=== PATIENT | female | born 1965 | race Caucasian/White ===

== ENCOUNTER 2020-05-06 13:40 | Emergency (ER) | payer MEDICARE, MEDICAID ==
[~2020-05-06] VITALS: Ht 160 cm; Wt 59.1 kg
[~2020-05-06 13:40] MED LIST: ALEN70TA60 PO; BISA-155 PO; ERGO400T7 PO; FURO-150 PO; GABA-532 PO; LAMO100T2 PO; LURA40TA3 PO; OMEP20TA5 PO; OXYC-138 PO; PROC5TAB10 PO; TRAZ-256 PO; VAL5T PO
[2020-05-06 14:24] LABS: BASOPHILS % (AUTO) 0.7 % (0-1); EOSINOPHILS % (AUTO) 0.8 % (0-6); HEMATOCRIT 41.9 % (35.0-45.0); LYMPHOCYTES # (AUTO) 1.3 X10'3 (1.1-4.8); LYMPHOCYTES % (AUTO) 20.5 % (21-51); MEAN CORPUSCULAR HEMOGLOBIN 32.4 PG (27.0-31.0); MEAN CORPUSCULAR HGB CONC 33.3 g/dL (33.0-36.5); MEAN CORPUSCULAR VOLUME 97.1 FL (78-98); MEAN PLATELET VOLUME 8.1 FL (7.4-10.4); MONOCYTES # (AUTO) 0.3 X10'3 (0-0.9); MONOCYTES % (AUTO) 4.1 % (2-12); NEUTROPHILS # (AUTO) 4.6 X10'3 (1.8-7.7); NEUTROPHILS % (AUTO) 73.9 % (42-75); PLATELET COUNT 171 X10'3 (140-440); RED BLOOD COUNT 4.32 X10'6 (4.20-5.60); RED CELL DISTRIBUTION WIDTH 15.7 % (11.5-14.5); WHITE BLOOD COUNT 6.2 X10'3 (4.5-11.0)
[2020-05-06 14:30] LABS: CLARITY,URINE CLEAR (Clear); COLOR,URINE STRAW (Yellow); GLUCOSE, URINE NEGATIVE (Neg); KETONES,URINE NEGATIVE (Neg); LEUKOCYTE ESTERASE ,URINE NEGATIVE (Neg); NITRITES, URINE NEGATIVE (Neg); OCCULT BLOOD,URINE NEGATIVE (Neg); PROTEIN,URINE NEGATIVE (Neg); UROBILINOGEN,URINE 0.2 E.U/dL (0.2-1.0)
[2020-05-06 14:40] LABS: UA COLLECTION TYPE CLN CATCH MIDSTREAM
[2020-05-06 14:42] LABS: ALANINE AMINOTRANSFERASE 21 U/L (12-78); ALBUMIN 3.7 G/DL (3.4-5.0); ALBUMIN/GLOBULIN RATIO 1.2 (1.1-1.5); ALKALINE PHOSPHATASE 85 IU/L (46-116); AMYLASE 25 U/L (25-115); ANION GAP 6 (8-16); ASPARTATE AMINO TRANSFERASE 15 U/L (10-37); BILIRUBIN,TOTAL 0.3 MG/DL (0.1-1.0); BLOOD UREA NITROGEN 19 MG/DL (7-18); BUN/CREATININE RATIO 22.4 (6.6-38.0); CALCIUM 8.7 MG/DL (8.5-10.1); CHLORIDE 104 MMOL/L (99-107); CREATININE 0.85 MG/DL (0.40-0.90); GLUCOSE 104 MG/DL (70-104); LIPASE < 50 U/L (73-393); POTASSIUM 3.5 MMOL/L (3.5-5.1); SODIUM 139 MMOL/L (135-145); TOTAL CARBON DIOXIDE 28.6 MMOL/L (24-32); TOTAL PROTEIN 6.8 G/DL (6.4-8.2); eGFR 69 ML/MIN
[2020-05-06 15:21] VITALS: BP 89/62
[2020-05-06] MEDS ORDERED: PANT-47 PO (16:35)
[2020-05-06] MEDS ORDERED: METO-292 PO (16:35)
== END 2020-05-06 16:41 | disposition home or self-care (01) ==
LOC: ER 13:41
DX: G89.29 Other chronic pain (principal); R10.9 Unspecified abdominal pain; K90.9 Intestinal malabsorption, unspecified; F41.9 Anxiety disorder, unspecified; F31.9 Bipolar disorder, unspecified; Z98.890 Other specified postprocedural states; Z88.8 Allergy status to other drugs, medicaments and biological substances; Z79.899 Other long term (current) drug therapy
CPT/HCPCS: 36415; 74018; 80053; 81003; 82150; 83690; 84443; 85025; 99284

== ENCOUNTER 2024-06-29 22:14 | Emergency (ER) | payer MEDICARE, MEDICAID ==
[~2024-06-29] VITALS: Ht 157.5 cm; Wt 80.4 kg
[~2024-06-29 22:14] MED LIST changes: +DIAZ5TAB22 PO; +LURA40TA2 PO; -LURA40TA3 PO; +METO-292 PO; +OMEP20TA43 PO; -OMEP20TA5 PO; +PANT-47 PO; -VAL5T PO
[2024-06-29 22:59] VITALS: BP 128/93
[2024-06-29] MEDS ORDERED: SULF1TAB45 PO (23:33)
[2024-06-29] MEDS ORDERED: CEPH-585 PO (23:33)
[2024-06-29] MEDS: cephalexin 250mg capsule PO ONE (23:42)
[2024-06-29] MEDS: sulfamethoxazole/trimethoprim DS (800/160mg) tablet PO ONE (23:42)
[2024-06-29 23:56] VITALS: PULSE 72; RESP 15; TEMP 97.7; O2SAT 98
== END 2024-06-30 00:14 | disposition home or self-care (01) ==
LOC: ER 22:15
DX: L03.811 Cellulitis of head [any part, except face] (principal); G89.29 Other chronic pain; F31.9 Bipolar disorder, unspecified; Z88.8 Allergy status to other drugs, medicaments and biological substances; Z79.899 Other long term (current) drug therapy; Z85.3 Personal history of malignant neoplasm of breast; Z98.890 Other specified postprocedural states
CPT/HCPCS: 99283

== ENCOUNTER 2024-07-28 21:50 | Emergency (ER) | payer MEDICARE, MEDICAID ==
[~2024-07-28] VITALS: Ht 157.5 cm; Wt 80.0 kg
[~2024-07-28 21:50] MED LIST changes: +CEPH-585 PO; +SULF1TAB45 PO
[2024-07-28 21:53] VITALS: BP 157/99; TEMP 99.1
[2024-07-28 22:33] LABS: BASOPHILS % (AUTO) 0.5 % (0-1); EOSINOPHILS % (AUTO) 0.6 % (0-6); HEMATOCRIT 47.1 % (35.0-45.0); LYMPHOCYTES # (AUTO) 1.2 X10'3 (1.1-4.8); LYMPHOCYTES % (AUTO) 15.9 % (21-51); MEAN CORPUSCULAR HEMOGLOBIN 34.5 PG (27.0-31.0); MEAN CORPUSCULAR VOLUME 101.5 FL (78-98); MEAN PLATELET VOLUME 8.2 FL (7.4-10.4); MONOCYTES # (AUTO) 0.6 X10'3 (0-0.9); MONOCYTES % (AUTO) 7.8 % (2-12); NEUTROPHILS # (AUTO) 5.5 X10'3 (1.8-7.7); NEUTROPHILS % (AUTO) 75.2 % (42-75); PLATELET COUNT 163 X10'3 (140-440); RED BLOOD COUNT 4.64 X10'6 (4.20-5.60); RED CELL DISTRIBUTION WIDTH 14.4 % (11.5-14.5); WHITE BLOOD COUNT 7.3 X10'3 (4.5-11.0)
[2024-07-28 22:39] VITALS: PULSE 102; RESP 18; O2SAT 97
[2024-07-28] MEDS: ipratropium/albuterol 3ml nebule NEB ONE (22:39)
[2024-07-28 22:51] VITALS: PULSE 97; RESP 16; O2SAT 94
[2024-07-28 22:54] LABS: ALBUMIN 3.9 G/DL (3.4-5.0); ANION GAP 12 (8-16); BLOOD UREA NITROGEN 6 MG/DL (7-18); BUN/CREATININE RATIO 9.1 (10.0-20.0); CALCIUM 8.6 MG/DL (8.5-10.1); CHLORIDE 101 MMOL/L (99-107); CREATININE 0.66 MG/DL (0.40-0.90); GLUCOSE 107 MG/DL (70-104); POTASSIUM 3.3 MMOL/L (3.5-5.1); PRO BRAIN NATRIURETIC PEPTIDE 56 PG/ML (0-125); SODIUM 138 MMOL/L (135-145); TOTAL CARBON DIOXIDE 24.7 MMOL/L (24-32); eCRCL 72 ML/MIN; eGFR > 90 ML/MIN
[2024-07-28] MEDS ORDERED: AZIT250T83 PO (23:05)
[2024-07-28] MEDS ORDERED: ALBU8HFA INH (23:05)
[2024-07-28] MEDS: CefTRIAXone 1000mg IM Kit (w/lidocaine diluent) IM ONE (23:50)
== END 2024-07-29 00:01 | disposition home or self-care (01) ==
LOC: ER 21:51
DX: J18.9 Pneumonia, unspecified organism (principal); F17.200 Nicotine dependence, unspecified, uncomplicated; F31.9 Bipolar disorder, unspecified; Z88.8 Allergy status to other drugs, medicaments and biological substances; G89.29 Other chronic pain; Z85.3 Personal history of malignant neoplasm of breast; Z20.822 Contact with and (suspected) exposure to COVID-19
CPT/HCPCS: 36415; 71046; 80048; 83605; 83880; 85025; 87040; 87502; 87503; 87811; 94640; 96372; 99284; J0696; 94760

== ENCOUNTER 2024-08-02 16:00 | Emergency (ER) | payer MEDICARE, MEDICAID ==
[~2024-08-02] VITALS: Ht 157.5 cm; Wt 80.8 kg
[~2024-08-02 16:00] MED LIST changes: +ALBU8HFA INH; +AZIT250T83 PO; -SULF1TAB45 PO
[2024-08-02 16:09] VITALS: TEMP 98.2
[2024-08-02 16:36] VITALS: PULSE 103; PULSE 108; RESP 18; O2SAT 99
[2024-08-02] MEDS: ipratropium/albuterol 3ml nebule NEB ONE (16:36)
[2024-08-02 16:51] LABS: BASOPHILS % (AUTO) 0.5 % (0-1); EOSINOPHILS # (AUTO) 0.1 X10'3 (0-0.9); EOSINOPHILS % (AUTO) 0.8 % (0-6); HEMATOCRIT 45.3 % (35.0-45.0); HEMOGLOBIN 15.6 g/dl (12.0-16.0); LYMPHOCYTES # (AUTO) 1.6 X10'3 (1.1-4.8); LYMPHOCYTES % (AUTO) 20.5 % (21-51); MEAN CORPUSCULAR HEMOGLOBIN 34.8 PG (27.0-31.0); MEAN CORPUSCULAR HGB CONC 34.5 g/dL (33.0-36.5); MEAN PLATELET VOLUME 8.2 FL (7.4-10.4); MONOCYTES # (AUTO) 0.3 X10'3 (0-0.9); MONOCYTES % (AUTO) 3.6 % (2-12); NEUTROPHILS # (AUTO) 5.7 X10'3 (1.8-7.7); NEUTROPHILS % (AUTO) 74.6 % (42-75); PLATELET COUNT 187 X10'3 (140-440); RED BLOOD COUNT 4.49 X10'6 (4.20-5.60); RED CELL DISTRIBUTION WIDTH 14.3 % (11.5-14.5); WHITE BLOOD COUNT 7.6 X10'3 (4.5-11.0)
[2024-08-02 17:12] LABS: ALBUMIN 4.2 G/DL (3.4-5.0); ANION GAP 7 (8-16); BLOOD UREA NITROGEN 11 MG/DL (7-18); BUN/CREATININE RATIO 12.2 (10.0-20.0); CALCIUM 9.1 MG/DL (8.5-10.1); CHLORIDE 105 MMOL/L (99-107); GLUCOSE 113 MG/DL (70-104); POTASSIUM 3.7 MMOL/L (3.5-5.1); PRO BRAIN NATRIURETIC PEPTIDE 57 PG/ML (0-125); SODIUM 141 MMOL/L (135-145); TOTAL CARBON DIOXIDE 28.9 MMOL/L (24-32); eCRCL 53 ML/MIN; eGFR 64 ML/MIN
[2024-08-02] MEDS: ipratropium/albuterol 3ml nebule NEB STA (17:17)
[2024-08-02] MEDS ORDERED: ACET1TAB96 PO (17:23)
[2024-08-02] MEDS ORDERED: PROM25TA14 PO (17:23)
[2024-08-02] MEDS ORDERED: PRED20TA PO (17:23)
[2024-08-02] MEDS ORDERED: CIPR-208 PO (17:23)
[2024-08-02] MEDS: dexamethasone sod phosphate 10mg/ml inj PO STA (18:18)
[2024-08-02] MEDS: proMETHazine 25mg tablet PO ONE (18:18)
[2024-08-02 18:44] VITALS: BP 134/95; PULSE 100; RESP 16; O2SAT 96
[2024-08-03] MEDS ORDERED: ACET1TAB96 PO (13:56)
== END 2024-08-02 18:45 | disposition home or self-care (01) ==
LOC: ER 16:01
DX: J18.9 Pneumonia, unspecified organism (principal); F31.9 Bipolar disorder, unspecified; F41.9 Anxiety disorder, unspecified; F17.200 Nicotine dependence, unspecified, uncomplicated; F10.90 Alcohol use, unspecified, uncomplicated; Z85.3 Personal history of malignant neoplasm of breast; Z88.8 Allergy status to other drugs, medicaments and biological substances; Z98.890 Other specified postprocedural states
CPT/HCPCS: 36415; 71046; 80048; 83605; 83880; 85025; 87040; 93005; 94640; 99285; J1100; Q0169; Z7610; 94760

== ENCOUNTER 2024-08-23 16:26 | Emergency (ER) | payer MEDICARE, MEDICAID ==
[~2024-08-23] VITALS: Ht 157.5 cm; Wt 81.4 kg
[~2024-08-23 16:26] MED LIST changes: -AZIT250T83 PO
[2024-08-23 16:27] VITALS: TEMP 98.1
[2024-08-23 18:35] VITALS: BP 130/95; PULSE 80; RESP 16; O2SAT 99
== END 2024-08-23 18:44 | disposition left against medical advice (07) ==
LOC: ER 16:26
DX: R05.9 Cough, unspecified (principal); R06.2 Wheezing; Z53.21 Procedure and treatment not carried out due to patient leaving prior to being seen by health care provider; Z88.8 Allergy status to other drugs, medicaments and biological substances
CPT/HCPCS: 71045

== ENCOUNTER 2024-09-13 07:07 | Outpatient (CLI) | payer MEDICARE, MEDICAID ==
[~2024-09-13 07:07] MED LIST changes: -ALBU8HFA INH
[2024-09-13 08:34] VITALS: PULSE 77; RESP 16; O2SAT 98
== END 2024-09-13 23:59 | disposition home or self-care (01) ==
LOC: RT 07:07
PROVIDERS: ATTEND Internal Medicine Interventional Cardiology
DX: R06.02 Shortness of breath (principal); J44.9 Chronic obstructive pulmonary disease, unspecified; R60.0 Localized edema; F17.210 Nicotine dependence, cigarettes, uncomplicated
CPT/HCPCS: 94010; 94729; 94760